=== PATIENT | male | born 1940 | race Two or more races ===

== ENCOUNTER 2018-08-20 14:36 | Emergency (ER) | payer MEDICARE ==
[~2018-08-20] VITALS: Ht 172.7 cm; Wt 63.5 kg
[2018-08-20] MEDS ORDERED: IV NORMAL SALINE 1000ML BAG 1,000 ML IV SCH (15:29)
[2018-08-20] MEDS ORDERED: ONDANSETRON PF 4 MG/2 ML VIAL. IV ONE (15:30)
[2018-08-20] MEDS ORDERED: fentaNYL PF VIAL 100 MCG/2 ML VIAL IV ONE (15:30)
--- NOTE | 2018-08-20 15:38 | PHYS DOC ---
Adult General Chief Complaint Chief Complaint: ABDOMINAL PAIN HPI HPI Patient is an 78-year-old male who presents with complaint of acute onset of left lower abdominal pain with nausea and vomiting. Patient indicates the pain radiates down into his groin at times. He states that pain is an 8 out of 10. He denies any exacerbating or alleviating factors. He denies any fever, chest pain or shortness of breath. He also denies any urinary discomfort. Review of Systems Review of Systems Constitutional: Denies fever or chills [] Respiratory: Denies cough or shortness of breath [] Cardiovascular: No additional information not addressed in HPI [] GI: Positive left lower abdominal pain with nausea and vomiting. No diarrhea [] : Denies dysuria or hematuria [] Musculoskeletal: Denies back pain or joint pain [] All other systems were reviewed and found to be within normal limits, except as documented in this note. Current Medications Current Medications Current Medications Medications (Trade) Dose Ordered Sig/Anthony Start Time Stop Time Status Last Admin Dose Admin Fentanyl Citrate (Fentanyl 2ml Vial) 50 mcg 1X ONCE 08/20/18 15:30 08/20/18 15:48 DC 08/20/18 16:22 50 MCG Ketorolac Tromethamine (Toradol 15mg Vial) 15 mg 1X ONCE 08/20/18 17:30 08/20/18 17:31 Ondansetron HCl (Zofran) 4 mg 1X ONCE 08/20/18 15:30 08/20/18 15:48 DC 08/20/18 16:22 4 MG Sodium Chloride 1,000 ml @ 1,000 mls/hr Q1H 08/20/18 15:29 08/20/18 16:28 DC 08/20/18 16:21 1,000 MLS/HR Tamsulosin HCl (Flomax) 0.4 mg 1X ONCE 08/20/18 17:30 08/20/18 17:31 Allergies Allergies Allergies Coded Allergies Type Severity Reaction Last Updated Verified No Known Drug Allergies 08/20/18 No Physical Exam Physical Exam Constitutional: Well developed, well nourished, no acute distress, non-toxic appearance. [] HENT: Normocephalic, atraumatic, bilateral external ears normal, oropharynx moist, no oral exudates, nose normal. [] Eyes: PERRLA, EOMI, conjunctiva normal, no discharge. [] Neck: Normal range of motion, no tenderness, supple. [] Cardiovascular: Regular rate and rhythm [] Lungs & Thorax: Bilateral breath sounds clear to auscultation [] Abdomen: Bowel sounds normal, soft, with left lower abdominal tenderness. [] Skin: Warm, dry, no erythema, no rash. [] Extremities: No tenderness, no cyanosis, no clubbing, ROM intact, no edema. [] Neurologic: Alert and oriented X 3, normal motor function, normal sensory function, no focal deficits noted. [] Current Patient Data Vital Signs Vital Signs Date Time Temp Pulse Resp B/P (MAP) Pulse Ox O2 Delivery O2 Flow Rate FiO2 08/20/18 17:00 63 20 124/60 (81) 99 Room Air 08/20/18 15:20 97.6 97.6 Lab Values Laboratory Tests Test 08/20/18 15:20 08/20/18 15:50 Urine Collection Type Unknown Urine Color Yellow Urine Clarity Clear Urine pH 5.0 Urine Specific [place] 1.025 Urine Protein Negative mg/dL (NEG-TRACE) Urine Glucose (UA) Negative mg/dL (NEG) Urine Ketones (Stick) Trace mg/dL (NEG) Urine Blood Large (NEG) Urine Nitrite Negative (NEG) Urine Bilirubin Negative (NEG) Urine Urobilinogen Dipstick 0.2 mg/dL (0.2 mg/dL) Urine Leukocyte Esterase Trace (NEG) Urine RBC 6-10 /HPF (0-2) Urine WBC Occ /HPF (0-4) Urine Squamous Epithelial Cells Few /LPF Urine Bacteria 0 /HPF (0-FEW) Urine Mucus Marked /LPF White Blood Count 13.2 x10^3/uL (4.0-11.0) H Red Blood Count 4.64 x10^6/uL (4.30-5.70) Hemoglobin 14.3 g/dL (13.0-17.5) Hematocrit 41.5 % (39.0-53.0) Mean Corpuscular Volume 89 fL (79-100) Mean Corpuscular Hemoglobin 31 pg (25-35) Mean Corpuscular Hemoglobin Concent 35 g/dL (31-37) Red Cell Distribution Width 14.6 % (11.5-14.5) H Platelet Count 225 x10^3/uL (140-400) Neutrophils (%) (Auto) 87 % (31-73) H Lymphocytes (%) (Auto) 8 % (24-48) L Monocytes (%) (Auto) 4 % (0-9) Eosinophils (%) (Auto) 0 % (0-3) Basophils (%) (Auto) 1 % (0-3) Neutrophils # (Auto) 11.5 x10^3uL (1.8-7.7) H Lymphocytes # (Auto) 1.0 x10^3/uL (1.0-4.8) Monocytes # (Auto) 0.6 x10^3/uL (0.0-1.1) Eosinophils # (Auto) 0.0 x10^3/uL (0.0-0.7) Basophils # (Auto) 0.1 x10^3/uL (0.0-0.2) Platelet Estimate Pending Sodium Level 142 mmol/L (136-145) Potassium Level 4.6 mmol/L (3.5-5.1) Chloride Level 103 mmol/L (98-107) Carbon Dioxide Level 31 mmol/L (21-32) Anion Gap 8 (6-14) Blood Urea Nitrogen 18 mg/dL (8-26) Creatinine 1.2 mg/dL (0.7-1.3) Estimated GFR (Cockcroft-Gault) 58.3 BUN/Creatinine Ratio 15 (6-20) Glucose Level 119 mg/dL (70-99) H Calcium Level 9.4 mg/dL (8.5-10.1) Total Bilirubin 0.3 mg/dL (0.2-1.0) Aspartate Amino Transferase (AST) 24 U/L (15-37) Alanine Aminotransferase (ALT) 24 U/L (16-63) Alkaline Phosphatase 78 U/L (46-116) Total Protein 7.0 g/dL (6.4-8.2) Albumin 3.5 g/dL (3.4-5.0) Albumin/Globulin Ratio 1.0 (1.0-1.7) Lipase 88 U/L (73-393) Laboratory Tests 08/20/18 15:50 Laboratory Tests 08/20/18 15:50 EKG EKG [] Radiology/Procedures Radiology/Procedures [] Impressions: CT STUDY OF THE ABDOMEN AND PELVIS WITHOUT CONTRAST Clinical indications: Left flank pain. Possible urinary tract stone. COMPARISON: None available. TECHNIQUE: Noncontrast helical CT scanning of the abdomen and pelvis was performed. Without contrast, the sensitivity to detect organ pathology is decreased. PQRS compliance Statement One or more of the following individualized dose reduction techniques were utilized for this study: 1. Automated exposure control 2. Adjustment of the mA and/or kV according to patient size 3. Use of iterative reconstruction technique COMPARISON: None available. FINDINGS: The liver and pancreas are unremarkable on this noncontrast study. The spleen is not enlarged. The gallbladder is normal and no extra hepatic biliary ductal dilatation is seen. No left adrenal mass is seen. There is a nodule of the right adrenal gland measuring 2.1 cm in size. It measures 36 Hounsfield units. There is moderate left-sided hydronephrosis and hydroureter. This is due to a distal left ureteral stone at the UVJ measuring 6 mm in size. No renal stone is seen on either side otherwise. No renal mass is seen on either side on this noncontrast study. Urinary bladder wall is smooth but the floor of the urinary bladder is indented by an enlarged prostate gland which measures 6 cm transversely. No focal aneurysmal dilatation of the abdominal aorta is seen. No enlarged abdominal or pelvic lymphadenopathy is seen. No obstructive bowel pattern is evident. There is wall thickening of the antrum of the stomach. No free air or free fluid or mesenteric edema is seen. Lung base scarring or atelectasis is seen within the lingula and right middle lobe. Calcified granuloma of the right middle lobe is seen. No lytic process is seen. Severe spinal canal stenosis is seen at L4-5 secondary to anterolisthesis. IMPRESSION: There is moderate left-sided hydronephrosis and hydroureter due to a distal left ureteral stone located at the UVJ measuring 6 mm in size. Wall thickening of the antrum of the stomach. Neoplastic disease or peptic ulcer disease or gastritis are possibilities. Endoscopy is recommended. 2.1 cm right adrenal gland nodule. This could represent a nonfat laden adrenal adenoma or metastatic disease. Enlarged prostate gland. Severe spinal canal stenosis at L4-5 secondary to grade 1 anterolisthesis. Electronically signed by: Marco Jain MD (08/20/2018 5:07 PM) [id number] Course & Med Decision Making Course & Med Decision Making Pertinent Labs and Imaging studies reviewed. (See chart for details) [] Dragon Disclaimer Dragon Disclaimer This electronic medical record was generated, in whole or in part, using a voice recognition dictation system. Departure Departure Impression: Primary Impression: Ureterolithiasis Disposition: 01 HOME, SELF-CARE Condition: STABLE Referrals: BRIDGET LOERA MD Patient Instructions: Kidney Stones Scripts Ondansetron Hcl (ZOFRAN) 4 Mg Tablet 4 MG PO PRN TID PRN for NAUSEA, #15 nausea/vomiting Prov: MYRA BOND Jr. DO 08/20/18 Tamsulosin Hcl (TAMSULOSIN HCL) 0.4 Mg Cap.er.24h 0.4 MG PO DAILY for 7 Days, #7 TAB Prov: MYRA BOND Jr. DO 08/20/18 Oxycodone/Apap 7.5-325 (PERCOCET 7.5-325 MG TABLET ) 1 Each Tablet 1 TAB PO Q4HRS PRN for PAIN for 3 Days, #18 TAB 0 Refills Prov: MYRA BOND Jr. DO 08/20/18 MYRA BOND Jr. DO Aug 20, 2018 15:38
[2018-08-20 16:02] LABS: BILIRUBIN,URINE NEGATIVE (NEG); CLARITY,URINE CLEAR; COLOR,URINE YELLOW; NITRITE,URINE NEGATIVE (NEG); PROTEIN,URINE NEGATIVE (NEG-TRACE); UROBILINOGEN,URINE 0.2 mg/dL (0.2 mg/dL)
[2018-08-20 16:04] LABS: BASO # 0.1 x10^3/uL (0.0-0.2); BASO % 1 % (0-3); EOS % 0 % (0-3); HEMATOCRIT 41.5 % (39.0-53.0); HEMOGLOBIN 14.3 g/dL (13.0-17.5); LYMPH % 8 % (24-48); MEAN CORPUSCULAR HEMOGLOBIN 31 pg (25-35); MEAN CORPUSCULAR HGB CONC 35 g/dL (31-37); MEAN CORPUSCULAR VOLUME 89 fL (79-100); MONO # 0.6 x10^3/uL (0.0-1.1); MONO % 4 % (0-9); NEUT # 11.5 x10^3uL (1.8-7.7); NEUT % 87 % (31-73); PLATELET COUNT 225 x10^3/uL (140-400); RED BLOOD COUNT 4.64 x10^6/uL (4.30-5.70); RED CELL DISTRIBUTION WIDTH 14.6 % (11.5-14.5); WHITE BLOOD COUNT 13.2 x10^3/uL (4.0-11.0)
[2018-08-20 16:16] LABS: BACTERIA,URINE 0 /HPF (0-FEW); WBC,URINE OCC /HPF (0-4)
[2018-08-20 16:17] LABS: SQUAMOUS EPITHELIAL CELL,UR FEW /LPF
[2018-08-20 16:23] LABS: CALCIUM 9.4 mg/dL (8.5-10.1); CREATININE 1.2 mg/dL (0.7-1.3); GFR 58.3; POTASSIUM 4.6 mmol/L (3.5-5.1)
[2018-08-20 16:27] LABS: ALBUMIN 3.5 g/dL (3.4-5.0); TOTAL BILIRUBIN 0.3 mg/dL (0.2-1.0)
--- NOTE | 2018-08-20 17:11 | RAD ---
CT STUDY OF THE ABDOMEN AND PELVIS WITHOUT CONTRAST Clinical indications: Left flank pain. Possible urinary tract stone. COMPARISON: None available. TECHNIQUE: Noncontrast helical CT scanning of the abdomen and pelvis was performed. Without contrast, the sensitivity to detect organ pathology is decreased. PQRS compliance Statement One or more of the following individualized dose reduction techniques were utilized for this study: 1. Automated exposure control 2. Adjustment of the mA and/or kV according to patient size 3. Use of iterative reconstruction technique COMPARISON: None available. FINDINGS: The liver and pancreas are unremarkable on this noncontrast study. The spleen is not enlarged. The gallbladder is normal and no extra hepatic biliary ductal dilatation is seen. No left adrenal mass is seen. There is a nodule of the right adrenal gland measuring 2.1 cm in size. It measures 36 Hounsfield units. There is moderate left-sided hydronephrosis and hydroureter. This is due to a distal left ureteral stone at the UVJ measuring 6 mm in size. No renal stone is seen on either side otherwise. No renal mass is seen on either side on this noncontrast study. Urinary bladder wall is smooth but the floor of the urinary bladder is indented by an enlarged prostate gland which measures 6 cm transversely. No focal aneurysmal dilatation of the abdominal aorta is seen. No enlarged abdominal or pelvic lymphadenopathy is seen. No obstructive bowel pattern is evident. There is wall thickening of the antrum of the stomach. No free air or free fluid or mesenteric edema is seen. Lung base scarring or atelectasis is seen within the lingula and right middle lobe. Calcified granuloma of the right middle lobe is seen. No lytic process is seen. Severe spinal canal stenosis is seen at L4-5 secondary to anterolisthesis. IMPRESSION: There is moderate left-sided hydronephrosis and hydroureter due to a distal left ureteral stone located at the UVJ measuring 6 mm in size. Wall thickening of the antrum of the stomach. Neoplastic disease or peptic ulcer disease or gastritis are possibilities. Endoscopy is recommended. 2.1 cm right adrenal gland nodule. This could represent a nonfat laden adrenal adenoma or metastatic disease. Enlarged prostate gland. Severe spinal canal stenosis at L4-5 secondary to grade 1 anterolisthesis. Electronically signed by: Marco Jain MD (08/20/2018 5:07 PM) [id number]
[2018-08-20 17:26] LABS: % BANDS 3 % (0-9); % LYMPHS 2 % (24-48); % MONOS 5 % (0-10); % SEGS 90 % (35-66)
[2018-08-20 17:30] VITALS: BP 131/60
[2018-08-20 17:30] LABS: PLT ESTIMATE ADEQUATE (ADEQUATE); TOXIC GRANULATION SLIGHT
[2018-08-20] MEDS ORDERED: KETOROLAC 15 MG/ML VIAL. IV ONE (17:30)
[2018-08-20] MEDS ORDERED: TAMSULOSIN 0.4 MG CAP.ER.24H. PO ONE (17:30)
[2018-08-20] MEDS ORDERED: ONDA4TAB7 PO (17:33)
[2018-08-20] MEDS ORDERED: TAMS0.4C2 PO (17:33)
[2018-08-20] MEDS ORDERED: OXYC1TAB19 PO (17:33)
== END 2018-08-20 17:50 | disposition home or self-care (01) ==
LOC: ER 14:36
DX: N13.2 Hydronephrosis with renal and ureteral calculous obstruction (principal); N40.0 Benign prostatic hyperplasia without lower urinary tract symptoms; M48.061 Spinal stenosis, lumbar region without neurogenic claudication; N13.4 Hydroureter; R11.2 Nausea with vomiting, unspecified
CPT/HCPCS: 36415; 74176; 80053; 81001; 83690; 85007; 85025; 87086; 96361; 96374; 96375; 99284; J1885; J2405; J3010; J7030